=== PATIENT | male | born 2000 | race Hispanic/Latino ===

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

== ENCOUNTER 2023-02-23 15:56 | Emergency (ER) | payer OTHER, SELFPAY ==
[2023-02-23] MEDS ORDERED: Proparacaine 0.5% Opth 15 ML BOT ONE (16:58)
[2023-02-23] MEDS ORDERED: Fluorescein Opthalmic Strip ONE (16:58)
== END 2023-02-23 17:50 | disposition home or self-care (01) ==
LOC: ERS 15:56
DX: H10.021 Other mucopurulent conjunctivitis, right eye (principal)
CPT/HCPCS: 99282